=== PATIENT | male | born 1995 | race Caucasian/White ===

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

== ENCOUNTER 2019-03-21 18:59 | Emergency (ER) | payer BC, OTHER ==
[~2019-03-21] VITALS: Ht 177.8 cm; Wt 74.8 kg
[~2019-03-21 18:59] MED LIST changes: +CEPH-264 PO
[2019-03-21 19:05] VITALS: BP 134/86
[2019-03-21] MEDS ORDERED: ASPIRIN 325 MG TABLET PO ONE (19:30)
[2019-03-21 19:38] LABS: BASO # 0.1 x10^3/uL (0.0-0.2); BASO % 1 % (0-3); EOS # 0.2 x10^3/uL (0.0-0.7); EOS % 2 % (0-3); HEMATOCRIT 47.4 % (39.0-53.0); HEMOGLOBIN 16.2 g/dL (13.0-17.5); LYMPH # 3.4 x10^3/uL (1.0-4.8); LYMPH % 55 % (24-48); MEAN CORPUSCULAR HEMOGLOBIN 32 pg (25-35); MEAN CORPUSCULAR HGB CONC 34 g/dL (31-37); MEAN CORPUSCULAR VOLUME 92 fL (79-100); MONO # 0.5 x10^3/uL (0.0-1.1); MONO % 8 % (0-9); NEUT # 2.2 x10^3/uL (1.8-7.7); NEUT % 34 % (31-73); PLATELET COUNT 195 x10^3/uL (140-400); RED BLOOD COUNT 5.13 x10^6/uL (4.30-5.70); RED CELL DISTRIBUTION WIDTH 12.6 % (11.5-14.5); WHITE BLOOD COUNT 6.3 x10^3/uL (4.0-11.0)
[2019-03-21 20:28] LABS: CREATINE KINASE 77 U/L (39-308)
[2019-03-21 20:43] LABS: CALCIUM 9.4 mg/dL (8.5-10.1); GFR 93.4; POTASSIUM 3.9 mmol/L (3.5-5.1)
[2019-03-21 20:48] LABS: ALBUMIN 4.5 g/dL (3.4-5.0); ALBUMIN/GLOBULIN RATIO 1.4 (1.0-1.7); TOTAL BILIRUBIN 0.4 mg/dL (0.2-1.0); TOTAL PROTEIN 7.8 g/dL (6.4-8.2)
--- NOTE | 2019-03-21 21:43 | RAD ---
AP portable chest radiograph 03/21/2019 Clinical History: Chest pain. An AP erect portable digital radiograph of the chest was obtained. No previous studies are available for comparison. The cardiac and mediastinal silhouettes are within normal limits in configuration. No acute pulmonary infiltrate is seen. No pleural effusion or pneumothorax is noted. The osseous structures are grossly intact. IMPRESSION: No acute abnormality is seen. Electronically signed by: Stan Gibson MD (03/21/2019 9:40 PM) [facility]
--- NOTE | 2019-03-21 21:51 | PHYS DOC ---
Past Medical History Past Medical History: Anxiety, Other (BOGDAN GORMAN APRN) Past Surgical History: Other Additional Past Surgical Histo: RIGHT WRIST SURGERY (BOGDAN GORMAN APRN) Alcohol Use: None Drug Use: Marijuana (BOGDAN GORMAN APRN) Adult General Chief Complaint Chief Complaint: CHEST PAIN HPI HPI Patient is a 24 year old male with a history of anxiety who presents to the ED today complaining of a 2 out of 10 left sided chest pain that has been going on intermittently since yesterday. Patient denies any relieving factors. He states he has a lot of stress going on right now in his life. Denies any suicidal or homicidal ideations. He states he goes for counseling. (BOGDAN GORMAN APRN) Review of Systems Review of Systems Constitutional: Denies fever or chills [] Eyes: Denies change in visual acuity, redness, or eye pain [] HENT: Denies nasal congestion or sore throat [] Respiratory: Denies cough or shortness of breath [] Cardiovascular: Left-sided chest pain. GI: Denies abdominal pain, nausea, vomiting, bloody stools or diarrhea [] : Denies dysuria or hematuria [] Musculoskeletal: Denies back pain or joint pain [] Integument: Denies rash or skin lesions [] Neurologic: Denies headache, focal weakness or sensory changes [] Psych: Appears anxious All other systems were reviewed and found to be within normal limits, except as documented in this note. (BOGDAN GORMAN APRN) Current Medications Current Medications Current Medications Medications (Trade) Dose Ordered Sig/Cristina Start Time Stop Time Status Last Admin Dose Admin Aspirin (Praveen Aspirin) 325 mg 1X ONCE 03/21/19 19:30 03/21/19 19:31 DC (ALEX KANG DO) Allergies Allergies Allergies Coded Allergies Type Severity Reaction Last Updated Verified No Known Drug Allergies 10/02/16 No (ALEX KANG DO) Physical Exam Physical Exam Constitutional: Well developed, well nourished, no acute distress, non-toxic appearance. [] HENT: Normocephalic, atraumatic, bilateral external ears normal, oropharynx moist, no oral exudates, nose normal. [] Eyes: PERRLA, EOMI, conjunctiva normal, no discharge. [] Neck: Normal range of motion, no tenderness, supple, no stridor. [] Cardiovascular:Heart rate regular rhythm, no murmur [] Lungs & Thorax: Bilateral breath sounds clear to auscultation [] Abdomen: Bowel sounds normal, soft, no tenderness, no masses, no pulsatile masses. [] Skin: Warm, dry, no erythema, no rash. [] Back: No tenderness, no CVA tenderness. [] Extremities: No tenderness, no cyanosis, no clubbing, ROM intact, no edema. [] Neurologic: Alert and oriented X 3, normal motor function, normal sensory function, no focal deficits noted. [] Psychologic: Flat affect, appears anxious. (BOGDAN GORMAN APRN) Current Patient Data Vital Signs Vital Signs Date Time Temp Pulse Resp B/P (MAP) Pulse Ox O2 Delivery O2 Flow Rate FiO2 03/21/19 19:05 98.0 88 20 134/86 (102) 99 Room Air 98.0 (KANG,ALEX R DO) Lab Values Laboratory Tests Test 03/21/19 19:30 White Blood Count 6.3 x10^3/uL (4.0-11.0) Red Blood Count 5.13 x10^6/uL (4.30-5.70) Hemoglobin 16.2 g/dL (13.0-17.5) Hematocrit 47.4 % (39.0-53.0) Mean Corpuscular Volume 92 fL (79-100) Mean Corpuscular Hemoglobin 32 pg (25-35) Mean Corpuscular Hemoglobin Concent 34 g/dL (31-37) Red Cell Distribution Width 12.6 % (11.5-14.5) Platelet Count 195 x10^3/uL (140-400) Neutrophils (%) (Auto) 34 % (31-73) Lymphocytes (%) (Auto) 55 % (24-48) H Monocytes (%) (Auto) 8 % (0-9) Eosinophils (%) (Auto) 2 % (0-3) Basophils (%) (Auto) 1 % (0-3) Neutrophils # (Auto) 2.2 x10^3/uL (1.8-7.7) Lymphocytes # (Auto) 3.4 x10^3/uL (1.0-4.8) Monocytes # (Auto) 0.5 x10^3/uL (0.0-1.1) Eosinophils # (Auto) 0.2 x10^3/uL (0.0-0.7) Basophils # (Auto) 0.1 x10^3/uL (0.0-0.2) Sodium Level 144 mmol/L (136-145) Potassium Level 3.9 mmol/L (3.5-5.1) Chloride Level 104 mmol/L (98-107) Carbon Dioxide Level 26 mmol/L (21-32) Anion Gap 14 (6-14) Blood Urea Nitrogen 15 mg/dL (8-26) Creatinine 1.0 mg/dL (0.7-1.3) Estimated GFR (Cockcroft-Gault) 93.4 BUN/Creatinine Ratio 15 (6-20) Glucose Level 97 mg/dL (70-99) Calcium Level 9.4 mg/dL (8.5-10.1) Magnesium Level 2.0 mg/dL (1.8-2.4) Total Bilirubin 0.4 mg/dL (0.2-1.0) Aspartate Amino Transferase (AST) 12 U/L (15-37) L Alanine Aminotransferase (ALT) 14 U/L (16-63) L Alkaline Phosphatase 50 U/L (46-116) Creatine Kinase 77 U/L (39-308) Creatine Kinase MB (Mass) < 0.5 ng/mL (0.0-3.6) Creatine Kinase MB Relative Index % (0-4) Troponin I Quantitative < 0.017 ng/mL (0.000-0.055) MU-Jzt-H-Type Natriuretic Peptide 40 pg/mL (0-124) Total Protein 7.8 g/dL (6.4-8.2) Albumin 4.5 g/dL (3.4-5.0) Albumin/Globulin Ratio 1.4 (1.0-1.7) Thyroid Stimulating Hormone (TSH) 1.470 uIU/mL (0.358-3.74) Ethyl Alcohol Level < 10 mg/dL (0-10) Laboratory Tests 03/21/19 19:30 Laboratory Tests 03/21/19 19:30 (ALEX KANG DO) EKG EKG [address] Kang sinus rhythm heart rate 84 no STEMI (BOGDAN GORMAN REHAB RN) Radiology/Procedures Radiology/Procedures []PROCEDURE: PORTABLE CHEST 1V AP portable chest radiograph 03/21/2019 Clinical History: Chest pain. An AP erect portable digital radiograph of the chest was obtained. No previous studies are available for comparison. The cardiac and mediastinal silhouettes are within normal limits in configuration. No acute pulmonary infiltrate is seen. No pleural effusion or pneumothorax is noted. The osseous structures are grossly intact. IMPRESSION: No acute abnormality is seen. Electronically signed by: Stan Gibson MD (03/21/2019 9:40 PM) [facility] DICTATED and SIGNED BY: STAN GIBSON MD DATE: 03/21/192139 (BOGDAN GORMAN APRN) Course & Med Decision Making Course & Med Decision Making Pertinent Labs and Imaging studies reviewed. (See chart for details) This is a 24-year-old male patient with history of anxiety who presents today complaining of chest pain. Cardiac workup is negative, he refused to give us urine. See heart score template. Discharged to home. Provided instructions to continue doing counseling and following up with the PCP. (BOGDAN GORMAN APRN) Dragon Disclaimer Dragon Disclaimer This electronic medical record was generated, in whole or in part, using a voice recognition dictation system. (BOGDAN GORMAN APRN) Departure Departure Impression: Primary Impression: Chest pain Additional Impressions: Anxiety Stress Disposition: 01 HOME, SELF-CARE Condition: STABLE Referrals: KASEY HOGUE RN MEDICARE (PCP) Follow-up in the course of this week Patient Instructions: Anxiety and Panic Attacks, Chest Pain (Nonspecific) Additional Instructions: You were evaluated in the emergency room for chest pain, your cardiac workup is negative, we highly suspect stress and anxiety is the trigger for your symptoms. Please consider getting help for stress and anxiety. If you do not have anywhere to get help consider [facility]. The HEART Score for CP Pts HEART Score for Chest Pain: HEART Score for Chest Pain Response (Comments) Value History Slighlty/Non-Suspicious 0 ECG Normal 0 Age < 45 0 Risk Factors No Risk Factors 0 Troponin < Normal Limit 0 Total 0 Risk Factors: Risk Factors: DM, Current or recent (<one month) smoker, HTN, HLP, family history of CAD, obesity. Risk Scores: Score 0 - 3: 2.5% MACE over next 6 weeks - Discharge Home Score 4 - 6: 20.3% MACE over next 6 weeks - Admit for Clinical Observation Score 7 - 10: 72.7% MACE over next 6 weeks - Early Invasive Strategies (BOGDAN GORMAN APRN) Attending Signature Attending Signature I have reviewed the PA/RN MEDICARE's note and plan of care. I was available for consultation as needed during the patient's visit in the emergency department. I agree with the clinical impression, plan, and disposition. (ALEX KANG DO) Problem Qualifiers Primary Impression: Chest pain Chest pain type: unspecified Qualified Codes: R07.9 - Chest pain, unspecified BOGDAN GORMAN APRN Mar 21, 2019 21:51 ALEX KANG DO Mar 22, 2019 04:16
--- NOTE | 2019-03-22 05:27 | EKG ---
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
== END 2019-03-21 22:05 | disposition home or self-care (01) ==
LOC: ER 18:59
DX: F41.9 Anxiety disorder, unspecified (principal); F43.9 Reaction to severe stress, unspecified
CPT/HCPCS: 36415; 71045; 80053; 82553; 83735; 83880; 84443; 84484; 85025; 93005; 99285; G0480